=== PATIENT | female | born 1980 | race American Indian/Alaskan Native ===

== ENCOUNTER 2016-09-25 22:00 | Emergency (ER) | payer OTHER, BC ==
[2016-09-25 22:31] VITALS: TEMP 98.2; O2SAT 100
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
[2016-09-25 23:52] VITALS: BP 130/78; PULSE 74; RESP 18
--- NOTE | 2016-09-26 12:46 | RAD ---
PROCEDURE: Radiographs of the Lumbar Spine. HISTORY: pain COMPARISON: None available. FINDINGS: BONES: Alignment appears satisfactory. No listhesis. No acute displaced fracture identified. DISC SPACES: Unremarkable. OTHER FINDINGS: Pelvic calcifications, likely phleboliths. IMPRESSION: No acute displaced fracture or subluxation identified.
== END 2016-09-25 23:51 | disposition home or self-care (01) ==
LOC: C.ER 22:00
DX: S39.012A Strain of muscle, fascia and tendon of lower back, initial encounter (principal); V43.52XA Car driver injured in collision with other type car in traffic accident, initial encounter; Y92.410 Unspecified street and highway as the place of occurrence of the external cause